=== PATIENT | male | born 1985 | race African-American/Black ===

== ENCOUNTER 2021-07-02 15:44 | Emergency (ER) | payer MEDICAID ==
[~2021-07-02] VITALS: Ht 182.9 cm; Wt 91.0 kg
[2021-07-02 15:53] VITALS: BP 139/89
[2021-07-02] MEDS ORDERED: MUPI1OIN4 TP (17:49)
[2021-07-02] MEDS ORDERED: CLOT24CR TP (17:51)
== END 2021-07-02 18:00 | disposition home or self-care (01) ==
LOC: ER 15:44
DX: N47.6 Balanoposthitis (principal); J45.909 Unspecified asthma, uncomplicated
CPT/HCPCS: 99283

== ENCOUNTER 2021-08-25 15:19 | Emergency (ER) | payer MEDICAID, OTHER ==
[~2021-08-25] VITALS: Ht 182.9 cm; Wt 92.0 kg
[~2021-08-25 15:19] MED LIST: CLOT24CR TP; MUPI1OIN4 TP
[2021-08-25 16:18] VITALS: BP 138/76
[2021-08-25] MEDS ORDERED: ALBU6.7H9 INH (16:52)
== END 2021-08-25 17:18 | disposition home or self-care (01) ==
LOC: ER 15:19
DX: Z76.0 Encounter for issue of repeat prescription (principal); J45.909 Unspecified asthma, uncomplicated
CPT/HCPCS: 99283

== ENCOUNTER 2022-04-18 21:23 | Emergency (ER) | payer MEDICAID, OTHER ==
[~2022-04-18] VITALS: Ht 182.9 cm; Wt 95.0 kg
[~2022-04-18 21:23] MED LIST changes: +ALBU6.7H9 INH
[2022-04-19] MEDS ORDERED: LIDOCAINE HCL 1% 20ML VIAL (Pyxis) INJ INFIL ONE (01:00)
[2022-04-19] MEDS ORDERED: LIDOCAINE HCL 2% JELLY 5ML TOP ONE (01:00)
[2022-04-19] MEDS ORDERED: SULF1TAB48 MT (03:12)
[2022-04-19 05:02] VITALS: BP 116/75
== END 2022-04-19 05:04 | disposition home or self-care (01) ==
LOC: ER 21:23
DX: L02.91 Cutaneous abscess, unspecified (principal); J45.909 Unspecified asthma, uncomplicated; Z79.899 Other long term (current) drug therapy
CPT/HCPCS: 99283; A4217; J3490; 99282

== ENCOUNTER 2022-05-02 15:53 | Emergency (ER) | payer MEDICAID, OTHER ==
[~2022-05-02] VITALS: Ht 185.4 cm; Wt 96.0 kg
[~2022-05-02 15:53] MED LIST changes: +SULF1TAB48 MT
[2022-05-02 16:30] VITALS: BP 140/95
[2022-05-02] MEDS ORDERED: IBUPROFEN 600MG TABLET PO ONE (19:00)
[2022-05-02] MEDS ORDERED: ACETAMINOPHEN 325MG TABLET PO ONE (19:00)
[2022-05-02] MEDS ORDERED: HYDR-4001 MT (20:04)
[2022-05-02] MEDS ORDERED: IBUP-2029 MT (20:04)
== END 2022-05-02 20:31 | disposition home or self-care (01) ==
LOC: ER 16:48
DX: S62.316A Displaced fracture of base of fifth metacarpal bone, right hand, initial encounter for closed fracture (principal); Y93.67 Activity, basketball; Y92.310 Basketball court as the place of occurrence of the external cause
CPT/HCPCS: 29125; 73130; 99283

== ENCOUNTER 2023-06-28 07:48 | Emergency (ER) | payer MEDICAID, OTHER ==
[~2023-06-28] VITALS: Ht 182.9 cm; Wt 90.7 kg
[~2023-06-28 07:48] MED LIST changes: +ALBU6.7H3 INH; -ALBU6.7H9 INH; +HYDR-4001 MT; +IBUP-2029 MT
[2023-06-28 08:15] VITALS: O2SAT 96
[2023-06-28 08:52] VITALS: PULSE 80; RESP 20
[2023-06-28] MEDS ORDERED: PREDNISONE 20MG TABLET PO STA (08:52)
[2023-06-28] MEDS ORDERED: ALBUTEROL (0.083%) 2.5MG/3ML NEB HHN STA (08:52)
[2023-06-28] MEDS ORDERED: IPRATROPIUM BROMIDE (0.02%) 0.5MG/2.5ML NEB HHN STA (08:52)
[2023-06-28] MEDS ORDERED: ALBU6.7H3 INH (12:13)
[2023-06-28] MEDS ORDERED: P50 MT (12:13)
[2023-06-28 13:14] VITALS: BP 131/87; PULSE 74; RESP 19; TEMP 98.7
== END 2023-06-28 13:15 | disposition home or self-care (01) ==
LOC: ER 07:50
DX: J45.909 Unspecified asthma, uncomplicated (principal); Z20.822 Contact with and (suspected) exposure to COVID-19
CPT/HCPCS: 71046; 94640; 99285; 87426; J7512; Z7610 ×3; C9803

== ENCOUNTER 2025-02-14 19:29 | Emergency (ER) | payer MEDICAID ==
[~2025-02-14] VITALS: Ht 182.9 cm; Wt 83.0 kg
[~2025-02-14 19:29] MED LIST changes: +P50 MT
[2025-02-14 19:35] VITALS: O2SAT 98
[2025-02-14] MEDS ORDERED: IBUP-2028 MT (20:28)
[2025-02-14] MEDS ORDERED: TOPUD PO (20:28)
[2025-02-14] MEDS: IBUPROFEN 400MG TABLET PO ONE (20:57)
[2025-02-14] MEDS: ACETAMINOPHEN 325MG TABLET PO ONE (20:58)
[2025-02-14 21:03] VITALS: BP 119/80; PULSE 84; RESP 16; TEMP 37; O2SAT 98
== END 2025-02-14 21:10 | disposition home or self-care (01) ==
LOC: ER 19:29
DX: S83.91XA Sprain of unspecified site of right knee, initial encounter (principal); J45.909 Unspecified asthma, uncomplicated; Z79.899 Other long term (current) drug therapy; X50.1XXA Overexertion from prolonged static or awkward postures, initial encounter; Y93.89 Activity, other specified; Y92.89 Other specified places as the place of occurrence of the external cause; Y99.8 Other external cause status
CPT/HCPCS: 73560; 99283; Z7610; L1830

== ENCOUNTER 2025-03-04 09:31 | Emergency (ER) | payer MEDICAID ==
[~2025-03-04] VITALS: Ht 177.8 cm; Wt 80.0 kg
[~2025-03-04 09:31] MED LIST changes: +IBUP-2028 MT; +TOPUD PO
[2025-03-04 09:35] VITALS: O2SAT 99
[2025-03-04 09:43] VITALS: BP 121/82; PULSE 71; RESP 15; TEMP 37; O2SAT 100
== END 2025-03-04 10:26 | disposition home or self-care (01) ==
LOC: ER 10:15
DX: S83.91XA Sprain of unspecified site of right knee, initial encounter (principal); J45.909 Unspecified asthma, uncomplicated; X58.XXXA Exposure to other specified factors, initial encounter; Y93.89 Activity, other specified; Y92.89 Other specified places as the place of occurrence of the external cause; Y99.8 Other external cause status
CPT/HCPCS: 99281